=== PATIENT | male | born 1995 | race Caucasian/White ===

== ENCOUNTER → 2016-02-08 | Outpatient (CLI) | payer OTHER | END | disposition home or self-care (01) | LOC: CDC 12:21 | DX: Z01.810 Encounter for preprocedural cardiovascular examination (principal); I49.9 Cardiac arrhythmia, unspecified; S62.611A Displaced fracture of proximal phalanx of left index finger, initial encounter for closed fracture; M79.642 Pain in left hand; M25.542 Pain in joints of left hand | CPT/HCPCS: 93000 ==